=== PATIENT | female | born 1970 | race Caucasian/White ===

== ENCOUNTER 2022-12-02 11:35 | Emergency (ER) | payer BC, OTHER ==
[~2022-12-02] VITALS: Ht 162 cm; Wt 105.0 kg
--- NOTE | 2022-12-02 11:58 | ED General ---
General Stated Complaint: ELEV BP; SOB; NECK/LT SHOULDER PAIN Source of Information: Patient Exam Limitations: No Limitations History of Present Illness Date Seen by Provider: Dec 02, 2022 Time Seen by Provider: 11:38 Initial Comments 52yoF with PMH of hypertension coming in due to elevated blood pressure and neck discomfort. Patient felt nausea last night. [place] again this way this morning was a little sweaty at the time. She was unsure if it was hot flashes as she is perimenopausal. Took her blood pressure and it was around 200/100. Went to the clinic with similar blood pressure and had neck discomfort at that time so she was referred to the ER. She denies any prior history of DVT or PE, no prior history of CAD or stenting, does not take any hormones, no recent surgery, no shortness of breath, fever, cough, abdominal pain, weakness, numbness, or any ot her concerns. Allergies and Home Medications Allergies Coded Allergies: No Known Drug Allergies (Unverified , 12/02/22) Patient Home Medication List Home Medication List Reviewed: Yes Review of Systems Review of Systems Constitutional: No fever EENTM: no symptoms reported Respiratory: no symptoms reported Cardiovascular: see HPI Gastrointestinal: no symptoms reported Genitourinary: no symptoms reported Musculoskeletal: no symptoms reported Skin: no symptoms reported Psychiatric/Neurological: No Symptoms Reported Hematologic/Lymphatic: No Symptoms Reported Past Mdtcdre-Ozowdb-Ageebq Hx Patient Social History Tobacco Use?: No Past Medical History 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 oz. kg; BMI Method: General Appearance: No Apparent Distress, WD/WN Eyes: Bilateral Eye Normal Inspection HEENT: PERRL/EOMI, Normal ENT Inspection, Pharynx Normal Neck: Full Range of Motion, Normal Inspection, Non Tender, Supple Respiratory: Chest Non Tender, Lungs Clear, Normal Breath Sounds, No Accessory Muscle Use, No Respiratory Distress Cardiovascular: Regular Rate, Rhythm, No Edema, Normal Peripheral Pulses Gastrointestinal: Normal Bowel Sounds, Non Tender, Soft; No Distended, No Guarding Back: Normal Inspection, No CVA Tenderness, No Vertebral Tenderness Extremity: Normal Capillary Refill, Normal Inspection, Normal Range of Motion, Non Tender, No Calf Tenderness, No Pedal Edema Neurologic/Psychiatric: Alert, No Motor/Sensory Deficits, Normal Mood/Affect Skin: Normal Color, Warm/Dry Progress/Results/Core Measures Suspected Sepsis SIRS Temperature: Pulse: Respiratory Rate: Laboratory Tests 12/02/22 12:05: White Blood Count 7.0 Blood Pressure / Mean: Laboratory Tests 12/02/22 12:05: Creatinine 0.60, INR Comment 0.9, Platelet Count 294, Total Bilirubin 0.2 Results/Orders Lab Results Laboratory Tests Test 12/02/22 12:05 Range/Units White Blood Count 7.0 4.3-11.0 10^3/uL Red Blood Count 4.07 3.80-5.11 10^6/uL Hemoglobin 12.6 11.5-16.0 g/dL Hematocrit 38 35-52 % Mean Corpuscular Volume 94 80-99 fL Mean Corpuscular Hemoglobin 31 25-34 pg Mean Corpuscular Hemoglobin Concent 33 32-36 g/dL Red Cell Distribution Width 12.8 10.0-14.5 % Platelet Count 294 130-400 10^3/uL Mean Platelet Volume 10.3 9.0-12.2 fL Immature Granulocyte % (Auto) 0 % Neutrophils (%) (Auto) 59 42-75 % Lymphocytes (%) (Auto) 29 12-44 % Monocytes (%) (Auto) 7 0-12 % Eosinophils (%) (Auto) 3 0-10 % Basophils (%) (Auto) 1 0-10 % Neutrophils # (Auto) 4.2 1.8-7.8 10^3/uL Lymphocytes # (Auto) 2.1 1.0-4.0 10^3/uL Monocytes # (Auto) 0.5 0.0-1.0 10^3/uL Eosinophils # (Auto) 0.2 0.0-0.3 10^3/uL Basophils # (Auto) 0.1 0.0-0.1 10^3/uL Immature Granulocyte # (Auto) 0.0 0.0-0.1 10^3/uL Prothrombin Time 12.6 12.2-14.7 SEC INR Comment 0.9 0.8-1.4 Activated Partial Thromboplast Time 27 24-35 SEC Sodium Level 142 135-145 MMOL/L Potassium Level 4.1 3.6-5.0 MMOL/L Chloride Level 104 98-107 MMOL/L Carbon Dioxide Level 26 21-32 MMOL/L Anion Gap 12 5-14 MMOL/L Blood Urea Nitrogen 17 7-18 MG/DL Creatinine 0.60 0.60-1.30 MG/DL Estimat Glomerular Filtration Rate 107 BUN/Creatinine Ratio 28 Glucose Level 96 70-105 MG/DL Calcium Level 9.6 8.5-10.1 MG/DL Corrected Calcium 9.2 8.5-10.1 MG/DL Magnesium Level 1.9 1.6-2.4 MG/DL Total Bilirubin 0.2 0.1-1.0 MG/DL Aspartate Amino Transf (AST/SGOT) 16 5-34 U/L Alanine Aminotransferase (ALT/SGPT) 22 0-55 U/L Alkaline Phosphatase 66 40-136 U/L Troponin I < 0.30 <0.30 NG/ML Pro-B-Type Natriuretic Peptide 44.6 <125.0 PG/ML Total Protein 7.3 6.4-8.2 GM/DL Albumin 4.5 3.2-4.5 GM/DL Lipase 31 8-78 U/L My Orders Orders - CATHY SHAFFER MD Cbc With Automated Diff (12/02/22 11:58) Magnesium (12/02/22 11:58) Chest 1 View Ap/Pa Only (12/02/22 11:58) Ekg Tracing (12/02/22 11:58) Comprehensive Metabolic Panel (12/02/22 11:58) Protime With Inr (12/02/22 11:58) Partial Thromboplastin Time (12/02/22 11:58) O2 (12/02/22 11:58) Monitor-Rhythm Ecg Trace Only (12/02/22 11:58) Ed Iv/Invasive Line Start (12/02/22 11:58) Lipase (12/02/22 11:58) Troponin I Fs (12/02/22 11:58) Probnp Fs (12/02/22 11:58) Acetaminophen Tablet (Tylenol Tablet) (12/02/22 12:15) Aspirin Chewable Tablet (Baby Aspirin Ch (12/02/22 12:15) Medications Given in ED Current Medications Medications Dose Ordered Sig/Renetta Route Start Time Stop Time Status Last Admin Dose Admin Acetaminophen 1,000 mg ONCE ONCE PO 12/02/22 12:15 12/02/22 12:16 DC 12/02/22 12:17 1,000 MG Aspirin 324 mg ONCE ONCE PO 12/02/22 12:15 12/02/22 12:16 DC 12/02/22 12:16 324 MG Vital Signs/I&O 12/02/22 12:09 Temp 36.5 Pulse 77 Resp 16 B/P (MAP) 163/102 (122) Pulse Ox 100 O2 Delivery Room Air Capillary Refill : Progress Note : Progress Note 52-year-old female with above history coming in due to elevated blood pressure and neck discomfort. ABCs were intact and vitals were stable on presentation. Blood pressure initially 180s over 100. Upon rest and retake of blood pressure trended down to 150s over 80s without intervention. EKG ordered and interpreted by me showing no acute ischemic changes. Chest x-ray with no acute findings including no pneumothorax, no pleural effusion, no pneumonia, normal cardiac silhouette. An IV was placed and basic labs were obtained including cardiac biomarkers. Troponin was negative. Given the symptoms have been ongoing since last night, highly unlikely to be ACS related. I discussed with the patient she should take her blood pressure a couple times a day and keep a journal, if her blood pressure continues to be elevated, to call her PCP to get a second blood pressure medication added to her regimen. She was low risk for PE per [place] criteria with no clinical signs of a DVT. On reassessment, she was completely pain-free and at her baseline. I believe she stable for discharge with outpatient follow-up. She was sent home with strict return precautions. ECG Initial ECG Impression Date: Dec 02, 2022 Initial ECG Impression Time: 11:56 Initial ECG Rate: 67 Initial ECG Rhythm: Normal Sinus Comment Narrow QRS, normal axis, no significant ST changes or T wave abnormalities Diagnostic Imaging Diagonstic Imaging: Xray Plain Films/CT/US/NM/MRI: chest Comments [facility], [facility]. [place], [place] NAME: CHRISTIAN JONES [facility] REC#: [id number] PT STATUS: REG ER : 1970 PHYSICIAN: CATHY SHAFFER MD ADMIT DATE: 12/02/22/ER FS Draft Date of Exam:12/02/22 CHEST 1 VIEW AP/PA ONLY PATIENT HISTORY: chest pain. TECHNIQUE: Single frontal view of the chest. COMPARISON: None FINDINGS: The lung volumes are normal. No focal consolidation is seen. No large pleural effusion or pneumothorax is seen. The cardiomediastinal silhouette is normal in size and contour. No acute osseous abnormality is seen. IMPRESSION: No acute pulmonary abnormality seen. Dictated on workstation # [id number] Dict: 12/02/22 1218 Trans: 12/02/22 1218 CV [id number] Interpreted by: SOFIA PUENTES MD Electronically signed by: Departure Impression Primary Impression: Hypertension Qualified Codes: I10 - Essential (primary) hypertension Additional Impression: Neck pain Disposition: HOME, SELF-CARE Condition: Improved Departure-Patient Inst. Decision time for Depature: 12:51 Referrals: MICHAEL MERCADO MD (PCP) Primary Care Physician Patient Instructions: High Blood Pressure ED Add. Discharge Instructions: Take your blood pressure 1-2 times a day, do not focus on the number too much, just write it down in a journal. If it continues to be consistently elevated, take these numbers to your doctor to be started on a new or different blood pressure medicine. If you have severe chest pain, severe shortness of breath, weakness or numbness we cannot move or feel 1 side of her body, worst headache of your life, then I would want you to come back to the ER. Work/School Note: Work Release Form Date Seen in the Emergency Department: Dec 02, 2022 Return to Work: Dec 03, 2022 Restrictions: No Restrictions CATHY SHAFFER MD Dec 02, 2022 11:58
[2022-12-02 12:09] LABS: BASOPHILS # (AUTO) 0.1 10^3/uL (0.0-0.1); BASOPHILS % (AUTO) 1 % (0-10); EOSINOPHILS # (AUTO) 0.2 10^3/uL (0.0-0.3); EOSINOPHILS % (AUTO) 3 % (0-10); HEMATOCRIT 38 % (35-52); HEMOGLOBIN 12.6 g/dL (11.5-16.0); LYMPHOCYTES # (AUTO) 2.1 10^3/uL (1.0-4.0); LYMPHOCYTES % (AUTO) 29 % (12-44); MEAN CORPUSCULAR HEMOGLOBIN 31 pg (25-34); MEAN CORPUSCULAR HGB CONC 33 g/dL (32-36); MEAN CORPUSCULAR VOLUME 94 fL (80-99); MEAN PLATELET VOLUME 10.3 fL (9.0-12.2); MONOCYTES # (AUTO) 0.5 10^3/uL (0.0-1.0); MONOCYTES % (AUTO) 7 % (0-12); NEUTROPHILS # (AUTO) 4.2 10^3/uL (1.8-7.8); NEUTROPHILS % (AUTO) 59 % (42-75); PLATELET COUNT 294 10^3/uL (130-400)
[2022-12-02] MEDS ORDERED: ASPIRIN 81 MG CHEW (CHILDREN'S ASA) PO ONE (12:15)
[2022-12-02] MEDS ORDERED: ACETAMINOPHEN 500 MG TAB (TYLENOL) PO ONE (12:15)
--- NOTE | 2022-12-02 12:19 | Diagnostic Imaging Report ---
PATIENT HISTORY: chest pain. TECHNIQUE: Single frontal view of the chest. COMPARISON: None FINDINGS: The lung volumes are normal. No focal consolidation is seen. No large pleural effusion or pneumothorax is seen. The cardiomediastinal silhouette is normal in size and contour. No acute osseous abnormality is seen. IMPRESSION: No acute pulmonary abnormality seen. Dictated by: Dictated on workstation # [id number]
[2022-12-02 12:23] LABS: INR 0.9 (0.8-1.4); PROTHROMBIN TIME PATIENT 12.6 SEC (12.2-14.7)
[2022-12-02 12:39] LABS: POTASSIUM 4.1 MMOL/L (3.6-5.0)
[2022-12-02 12:40] LABS: BILIRUBIN,TOTAL 0.2 MG/DL (0.1-1.0); CALCIUM 9.6 MG/DL (8.5-10.1); CREATININE SERUM 0.6 MG/DL (0.60-1.30); MAGNESIUM 1.9 MG/DL (1.6-2.4)
[2022-12-02 12:42] LABS: ALBUMIN 4.5 GM/DL (3.2-4.5); TOTAL PROTEIN 7.3 GM/DL (6.4-8.2)
[2022-12-02 13:00] VITALS: BP 163/76
== END 2022-12-02 13:01 | disposition home or self-care (01) ==
LOC: ER FS 11:37
DX: I10 Essential (primary) hypertension (principal); M54.2 Cervicalgia; Z28.310 Unvaccinated for COVID-19
CPT/HCPCS: 36415; 71045; 80053; 83690; 83735; 83880; 84484; 85025; 85610; 85730; 93005; 93041